=== PATIENT | male | born 1980 | race Native Hawaiian/Other Pacific Islander ===

== ENCOUNTER 2017-03-30 02:18 | Observation (INO) | payer OTHER ==
[2017-03-30] VITALS (10 sets, daily range): BP systolic 119–154; BP diastolic 73–88; PULSE 57–95; TEMP 97.5–98.8
[~2017-03-30] VITALS: Ht 180.3 cm; Wt 121.5 kg
[2017-03-30 03:07] LABS: BASO # 0.1 (0.0-0.2); BASO % 0.9 % (0.0-2.0); EOS # 0.4 (0.0-0.7); EOS % 6.1 % (0-4.0); GRAN # 2.6 (1.4-6.5); GRAN % 39.9 % (42.2-75.2); HEMATOCRIT 44.6 % (42.0-52.0); HEMOGLOBIN 15.6 g/dl (13.5-18.0); LYMPH # 2.9 (1.2-3.4); LYMPH % 43.6 % (20.0-51.0); MEAN CELL VOLUME 89 fl (80.0-100.0); MEAN CORPUSCULAR HEMOGLOBIN 31 pg (27.0-31.0); MEAN CORPUSCULAR HGB CONC 35 g/dl (33.0-37.0); MEAN PLATELET VOLUME 8.7 fl (7.4-10.4); MONO # 0.6 (0.1-0.6); MONO % 9.3 % (1.7-9.3); PLATELET COUNT 318 K/mm3 (130-400); RED BLOOD COUNT 5.04 M/mm3 (4.20-5.60); REDCELL DISTRIBUTION WIDTH-CV 12.9 % (11.5-14.5)
[2017-03-30 03:29] LABS: COLLECTION METHOD CLEAN CATCH
[2017-03-30 03:37] LABS: MUCOUS Present /lpf; PH 5 (5-8); SQUAMOUS EPITHELIAL None Seen /hpf; URINE APPEARANCE Clear; URINE BACTERIA None Seen /hpf; URINE BILIRUBIN Negative (NEGATIVE); URINE BLOOD 1+ (NEGATIVE); URINE COLOR Yellow; URINE GLUCOSE Negative (NEGATIVE); URINE KETONE Negative (NEGATIVE); URINE LEUKOCYTE ESTERASE Negative (NEGATIVE); URINE NITRATE Negative (NEGATIVE); URINE PROTEIN(semi-quant) 1+ (NEGATIVE); URINE RBC 0-2 /hpf; URINE UROBILINOGEN Negative (NEGATIVE)
[2017-03-30 03:38] LABS: ALBUMIN 4.9 gm/dL (3.5-5.0); BILIRUBIN,TOTAL 0.5 mg/dL (0.0-1.0); CALCIUM 9.8 mg/dL (8.4-10.2); TOTAL PROTEIN 8.5 gm/dL (6.4-8.2)
== END 2017-03-30 18:39 | disposition home or self-care (01) ==
LOC: COL.ER 02:18 → SURG 06:53
PROVIDERS: Emergency Medicine
DX: K80.12 Calculus of gallbladder with acute and chronic cholecystitis without obstruction (principal); J45.909 Unspecified asthma, uncomplicated; I10 Essential (primary) hypertension; Z88.3 Allergy status to other anti-infective agents
CPT/HCPCS: G0378; J0171; J1100; J1170; J1885; J2300; J2405; J2704; J2710; J3010; J7030; Q9967

== ENCOUNTER 2023-08-13 11:54 | Emergency (ER) | payer OTHER ==
[~2023-08-13] VITALS: Ht 180.3 cm; Wt 115.5 kg
[~2023-08-13 11:54] MED LIST: CLEOCIN HC150 MG/CAP PO
[2023-08-13 11:58] VITALS: TEMP 98.4
[2023-08-13] MEDS ORDERED: Ibuprofen 400 MG TAB PO ONE (12:30)
[2023-08-13] MEDS ORDERED: NORCO 325 MG-51 TAB PO (13:31)
[2023-08-13] MEDS ORDERED: MOTRIN 800800 MG/TAB PO (13:31)
[2023-08-13 13:56] VITALS: BP 148/86; PULSE 64
== END 2023-08-13 13:56 | disposition home or self-care (01) ==
LOC: COL.ER 11:54
DX: S93.501A Unspecified sprain of right great toe, initial encounter (principal); X58.XXXA Exposure to other specified factors, initial encounter